=== PATIENT | female | born 1960 | race Caucasian/White ===

== ENCOUNTER 2024-01-23 12:49 | Emergency (ER) | payer OTHER, SELFPAY ==
--- NOTE | ~2024-01-23 | XR_ITS ---
XR hip LT 2V w AP pelvis Ordering provider: Apryl Rodriguez MD History: . fall, pain . Comparison: None. FINDINGS: BONES: No acute fracture or dislocation. HIP JOINT SPACES: Normal. SACROILIAC JOINT SPACES/LUMBAR SPINE: The sacroiliac joint spaces are normal. Mild degenerative foley es of the visualized lower lumbar spine.pits pit seen in left femoral neck. PUBIC SYMPHYSIS: Normal. SOFT TISSUES: Normal. IMPRESSION: No acute osseous abnormality pelvis and left hip. Reviewed, dictated and finalized at location A.
--- NOTE | ~2024-01-23 | XR_ITS ---
XR knee LT 3V Ordering provider: Apryl Rodriguez MD History: . fall, pain . Comparison: None. FINDINGS: BONES: No acute fracture or dislocation. JOINT SPACES: Normal. SOFT TISSUES: Normal. IMPRESSION: No acute osseous abnormality left knee. Reviewed, dictated and finalized at location A.
[2024-01-23 13:32] VITALS: BP 144/78; PULSE 71; RESP 18; TEMP 36.6; O2SAT 100
--- NOTE | 2024-01-23 14:37 | ED.GENADULT ---
HPI - General Adult General Chief complaint: Unspecified Stated complaint: left leg pain and antidepressant Time Seen by Provider: 01/23/24 14:29 History of Present Illness HPI narrative: Patient is a 63-year-old female with history of depression here with left hip and knee pain as well as requesting a refill for her antidepressants. Patient states that about 3 months ago she was outside of this hospital, slipped and fell down onto her left side. She states she has had intermittent severe pain since that time in both the left hip and the left knee. She has been able to obtain a job recently and spends a decent amount of time on her feet at work and she has been able to ambulate. She notes that the pain in her hip and groin are worse with positional changes and walking, better at rest. She denies any changes in her bowel movements. She denies any fullness in her groin or known hernia. She has been attempting to use multiple [id number] medications including Biofreeze, Advil, ibuprofen without improvement of symptoms. Pain has worsened today and was so severe that it caused her to be nauseous which prompted her visit to the emergency department. She is additionally requesting a refill of her fluoxetine. She states she was on it for many years, has now been off of this medication for at least 3 years. She is currently awaiting establishment with a new primary care doctor who she will be seeing in March for the time. She denies any suicidal or homicidal ideations, does believe that she would benefit from being restarted on her fluoxetine because it has helped her in the past. She notes that she is currently living out of her car after being kicked out of the house by family members that she was staying with. Related Data Allergies Allergy/AdvReac Type Severity Reaction Status Date / Time codeine Allergy Unknown Verified 01/23/24 15:52 Review of Systems Review of Systems: All systems reviewed & are unremarkable except as noted in HPI and below Exam Narrative: GENERAL: Well-appearing, well-nourished, and in no acute distress. HEAD: Normocephalic, atraumatic. CHEST: Clear to auscultation. No respiratory distress. HEART: Regular rate and rhythm. Normal peripheral pulses. ABDOMEN: Soft, nontender, nondistended. No inguinal hernia palpated bilaterally EXTREMITIES: Normal range of motion of both left hip and left knee. She does have tenderness of the left knee diffusely as well as of the left hip. Strong pulses and sensation distal to sites of pain. No obvious deformities or swelling to these joints. SKIN: Warm, dry, no rash. NEURO: No focal deficits. Alert and oriented x3. PSYCH: Normal mood and affect. Course Course Emergency Course: Chart review performed. Patient here with left leg pain for years as well as requesting refill for antidepressants. Triage vitals normal. No prior visits in our system. No medication list in our system. Patient seen evaluated, nontoxic appearing. She does have a remote injury to her left hip and knee. Low suspicion for fracture however will do x-rays given continued pain multiple months after injury. Suspected likely arthritis and overuse is playing a role in her continued pain after injury. She is additionally requesting refill on medications that she has not been taking for multiple years. I advised we do not start jail medications for chronic conditions through the Emergency Department when she has been off of these medications for many years. Will give her resources to establish with behavioral health services so they can restart her on medications or initiate new medications and follow her care. She is agreeable to workup and plan. X-rays negative. Will give patient appear referral as well as Behavioral Health follow-up information. The results of pertinent diagnostic studies and exam findings were discussed. The patient?s provisional diagnosis and plan of care were discussed w
[2024-01-23] MEDS: ACETAMINOPHEN 325 MG TABLET 650 MG PO (15:53)
[2024-01-23] MEDS: Please add drug allergy info to patient profile. 1 EACH XX (15:53)
[2024-01-23 16:39] VITALS: BP 138/83; PULSE 75; RESP 18; O2SAT 97
== END 2024-01-23 16:40 | disposition home or self-care (01) ==
PROVIDERS: Emergency Provider Student in an Organized Health Care Education/Training Program
DX: M25.552 Pain in left hip (principal); M25.562 Pain in left knee; F32.A Depression, unspecified; Z76.0 Encounter for issue of repeat prescription
CPT/HCPCS: 73502; 73562; 99284; A9270